=== PATIENT | female | born 1970 | race Caucasian/White ===

== ENCOUNTER 2016-07-07 07:19 | Emergency (ER) | payer OTHER ==
[2016-07-07] MEDS ORDERED: IBUPROFEN 800 MG TABLET PO ONE (08:03)
--- NOTE | 2016-07-07 08:10 | ER Document Report ---
HPI - HPI Patient complains to provider of: alleged attack Onset: This morning - [id number] Quality of pain: Achy Severity: Moderate Pain Level: 3 Context: Patient presents to the emergency department with complaints of alleged attack that occurred at 5:30 to 6:00 this morning. 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 She went to put trash in the dumpster and when she slid the door open something jumped out at her. ARTHUR was called and they think it was a cat because they found cat hairs. Patient does not think it was a cat. She has a long vertical scratch on her forehead and abrasion near her hairline, no active bleeding. Denies change of LOC. She reports as soon as it happened she ran into the store. Reports tetanus up to date. C/O ELAINE. 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 [employer] Family History: CAD, DM, Malignancy, Other - stroke Patient has suicidal ideation: No Patient has homicidal ideation: No - Past Medical History Cardiac Medical History: Reports: Hx Hypercholesterolemia, Hx Hypertension, Hx Heart Murmur Pulmonary Medical History: Denies: Hx Respiratory Failure, Hx Sleep Apnea, Hx Tuberculosis Neurological Medical History: Reports: Hx Cerebrovascular Accident - 04/29 at [facility] for "blood clot in brain", Hx Migraine - OCCASIONAL Endocrine Medical History: Reports: Hx Hypothyroidism - ON SYNTHROID, PROPYLTHIOURACIL Renal/ Medical History: Denies: Hx Peritoneal Dialysis GI Medical History: Reports: Hx Ulcer Psychiatric Medical History: Reports: Hx Anxiety, Hx Depression Traumatic Medical History: Reports: Hx Fractures - left elbow Past Surgical History: Reports: Hx Appendectomy, Hx Cardiac Catheterization, Hx Section, Hx Tonsillectomy, Hx Tubal Ligation - Immunizations Immunizations up to date: Yes - 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 IN LAST 30 DAYS: No - HEENT HEENT: RAVINDRARPAYAL. negative: Pharyngeal Erythema - NECK Neck: Normal Inspection, Supple. negative: Lymphadenopathy-Left, Lymphadenopathy-Right - RESPIRATORY Respiratory: Breath Sounds Normal, No Respiratory Distress O2 Sat by Pulse Oximetry: 100 - CARDIOVASCULAR Cardiovascular: Regular Rate - MUSCULOSKELETAL/EXTREMETIES Musculoskeletal/Extremeties: MAEW, FROM, Non-Tender - NEURO Level of Consciousness: Awake, Alert, Appropriate Motor/Sensory: No Motor Deficit - DERM Integumentary: Warm, Dry, Laceration - scratches, #1- 1.2 cm horizontal linear, no active bleeding on forehead, center near hairline #2- 4 cm vertically, irregular down left side of cheeck Adult Front & Back Diagram: 1 - 1.5 cm 2 - 4cm irregular scratch 3 - small puncture wound <1mm 4 - small puncture wound, <1mm Course - Re-evaluation Re-evalutation: 07/07/16 08:33 Problems cleaned really well by blackjack supervisor keke and nahed with NS and hebicleyamile. Patient was instructed to follow up with animal control. An optimal control form completed here by SANTY Jacobs. . Little chance that this was a rapid raccoon due to unprovoked attack. Most likely a cat. Patient was instructed on the importance of cleaning the scratches and medication as prescribed - Vital Signs Vital signs: Temp Pulse Resp BP Pulse Ox 97.6 F 76 16 156/90 H 100 07/07/16 07:28 07/07/16 07:28 07/07/16 07:28 07/07/16 07:28 07/07/16 07:28 Discharge - Discharge Clinical Impression: alleged attack, Animal scratch Facial abrasion Qualifiers: Encounter type: initial encounter Qualified Code(s): S00.81XA - Abrasion of other part of head, initial encounter Condition: Stable Disposition: HOME, SELF-CARE Instructions: Abrasions of the Face ([facility]), Use of Gnfv-Avp-Mdlkmpp Ibuprofen ( [facility]), Augmentin ([facility]) Additional Instructions: *You have been treated for facial abrasions post possible cat scratch *Take ibuprofen as indicated for pain *Take medication as prescribed *Monitor the sites for signs of infection such as increasing pain, redness, swelling, warmth *Keep the areas clean *Follow up with your primary care provider within 5 days for recheck *Return to ED for signs of infection, worsening condition, changes, needs Prescriptions: Amoxicillin/Potassium Clav [Augmentin 875-125 Tablet] 1 each PO BID #20 tablet Forms: Elevated Blood Pressure Referrals: ABEL WARNER [Primary Care Provider] - Follow up in 3-5 days
[2016-07-07 08:48] VITALS: BP 137/89
== END 2016-07-07 08:48 | disposition home or self-care (01) ==
LOC: ER 07:19
DX: S00.81XA Abrasion of other part of head, initial encounter (principal); S01.83XA Puncture wound without foreign body of other part of head, initial encounter; F17.210 Nicotine dependence, cigarettes, uncomplicated; W55.03XA Scratched by cat, initial encounter; Y92.524 Gas station as the place of occurrence of the external cause; Y99.0 Civilian activity done for income or pay; I10 Essential (primary) hypertension; E03.9 Hypothyroidism, unspecified; E78.00 Pure hypercholesterolemia, unspecified; Z86.73 Personal history of transient ischemic attack (TIA), and cerebral infarction without residual deficits; Z98.51 Tubal ligation status
CPT/HCPCS: 99283

== ENCOUNTER 2016-08-30 18:45 | Emergency (ER) | payer OTHER ==
[2016-08-30] MEDS ORDERED: ASPIRIN 81 MG TABLET, CHEWABLE PO ONE (19:13)
--- NOTE | 2016-08-30 19:13 | ER Document Report ---
ED Medical Screen (RME) - General Stated Complaint: CHEST PAIN Time seen by provider: 19:10 Mode of Arrival: Wheelchair Information source: Patient Notes: 46-year-old female presents to ED for chest pain with shortness of breath and right hand numbness this started about 2 hours ago. She also has blurred vision. They she has not had cardiac problems before. Last menstrual period was in June she is irregular. I have greeted and performed a rapid initial assessment of this patient. A comprehensive ED assessment and evaluation of the patient, analysis of test results and completion of medical decision making process will be conducted by an additional ED providers. TRAVEL OUTSIDE OF THE [place] IN LAST 30 DAYS: No - Related Data Allergies/Adverse Reactions: erythromycin base [Erythromycin Base] Allergy (Mild, Verified 07/07/16 07:28) Pruritis latex [Latex] Allergy (Mild, Verified 07/07/16 07:28) Blisters Past Medical History - Past Medical History Cardiac Medical History: Reports: Hx Hypercholesterolemia, Hx Hypertension, Hx Heart Murmur Pulmonary Medical History: Denies: Hx Respiratory Failure, Hx Sleep Apnea, Hx Tuberculosis Neurological Medical History: Reports: Hx Cerebrovascular Accident - 04/29 at [place] for "blood clot in brain", Hx Migraine - OCCASIONAL Endocrine Medical History: Reports: Hx Hypothyroidism - ON SYNTHROID, PROPYLTHIOURACIL Renal/ Medical History: Denies: Hx Peritoneal Dialysis GI Medical History: Reports: Hx Ulcer Psychiatric Medical History: Reports: Hx Anxiety, Hx Depression Traumatic Medical History: Reports: Hx Fractures - left elbow Past Surgical History: Reports: Hx Appendectomy, Hx Cardiac Catheterization, Hx Section, Hx Tonsillectomy, Hx Tubal Ligation - Immunizations Immunizations up to date: Yes - 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
[2016-08-30 19:58] LABS: ABSOLUTE BASOPHILS # (AUTO) 0.1 10^3/uL (0.0-0.2); ABSOLUTE EOSINOPHILS # (AUTO) 0.3 10^3/uL (0.0-0.6); ABSOLUTE LYMPHOCYTES (AUTO) 2.6 10^3/uL (0.5-4.7); ABSOLUTE MONOCYTES (AUTO) 1.1 10^3/uL (0.1-1.4); ABSOLUTE NEUT (AUTO) 5.9 10^3/uL (1.7-8.2); BASOPHILS % (AUTO) 0.9 % (0-2); EOSINOPHILS % (AUTO) 3.5 % (0-6); HEMATOCRIT 36.2 % (36.0-47.0); HEMOGLOBIN 11.6 g/dL (12.0-15.5); HGB HCT DIFFERENCE -1.4; LYMPHOCYTES % (AUTO) 25.9 % (13-45); MEAN CORPUSCULAR HEMOGLOBIN 23.1 pg (27.0-33.4); MEAN CORPUSCULAR VOLUME 72 fl (80-97); MONOCYTES % (AUTO) 10.6 % (3-13); RED BLOOD COUNT 5.02 10^6/uL (3.72-5.28); RED CELL DISTRIBUTION WIDTH 15.5 % (11.5-14.0); SEGMENTED NEUTROPHILS % (AUTO) 59.1 % (42-78)
[2016-08-30 20:09] LABS: APPEARANCE,URINE CLEAR; BILIRUBIN,URINE NEGATIVE (NEGATIVE); GLUCOSE, URINE NEGATIVE (NEGATIVE); KETONES,URINE NEGATIVE (NEGATIVE); LEUKOCYTE ESTERASE,URINE NEGATIVE (NEGATIVE); NITRITE,URINE NEGATIVE (NEGATIVE); PROTEIN,URINE NEGATIVE (NEGATIVE); URINE SPECIFIC GRAVITY 1.003; UROBILINOGEN,URINE NEGATIVE mg/dL (<2.0)
[2016-08-30 20:13] LABS: ALANINE AMINOTRANSFERASE 21 U/L (9-52); ALKALINE PHOSPHATASE 82 U/L (38-126); ANION GAP 13 (5-19); ASPARTATE AMINO TRANSFERASE 18 U/L (14-36); BILIRUBIN,TOTAL 0.4 mg/dL (0.2-1.3); BLOOD UREA NITROGEN 11 mg/dL (7-20); CALCIUM 10.4 mg/dL (8.4-10.2); CARBON DIOXIDE 22 mmol/L (22-30); CHLORIDE 106 mmol/L (98-107); CREATINE KINASE 59 U/L (30-135); CREATININE RESULT 0.89 mg/dL (0.52-1.25); GLUCOSE 101 mg/dL (75-110); MAGNESIUM 2.1 mg/dL (1.6-2.3); POTASSIUM 4.4 mmol/L (3.6-5.0); SODIUM 140.9 mmol/L (137-145); TOTAL PROTEIN 8.6 g/dL (6.3-8.2)
[2016-08-30 20:26] LABS: CREATINE KINASE MB < 0.22 ng/mL (<4.55); TROPONIN I < 0.012 ng/mL
[2016-08-30] MEDS ORDERED: NORMAL SALINE 1000 ML 1,000 ML IV PRN (22:15)
[2016-08-30] MEDS ORDERED: MECLIZINE HCL 25 MG TABLET PO ONE (22:15)
[2016-08-30] MEDS ORDERED: ONDANSETRON HCL INJ/PF 4 MG/2 ML SDV IV ONE (22:15)
[2016-08-30 23:41] LABS: CREATINE KINASE MB < 0.22 ng/mL (<4.55); TROPONIN I < 0.012 ng/mL
[2016-08-30 23:42] LABS: FREE T3 4.47 pg/mL (2.77-5.27)
[2016-08-30 23:56] LABS: THYROID STIMULATING HORMONE 19.8 uIU/mL (0.47-4.68)
--- NOTE | 2016-08-31 00:42 | ER Document Report ---
ED General - General Chief Complaint: Chest Pain Stated Complaint: CHEST PAIN Time seen by provider: 00:41 Mode of Arrival: Wheelchair Information source: Patient TRAVEL OUTSIDE OF THE U.S. IN LAST 30 DAYS: No - HPI Patient complains to provider of: right-sided chest pain, dizziness, blurred vision Onset: This afternoon Onset/Duration: Gradual Quality of pain: Achy Severity: Mild Pain Level: 2 Associated symptoms: Body/muscle aches, Chest pain, Shortness of breath Exacerbated by: Denies Relieved by: Denies Similar symptoms previously: No Recently seen / treated by doctor: No Notes: Patient is a 46-year-old female presents to the emergency room complaining of right-sided chest pain with blurred vision, dizziness and lightheadedness that' s been going on for the past 5-6 hours, she reports symptoms started while at rest, she denies any neck pain, no nausea or vomiting, she does report shortness of breath as well, no history of similar symptoms previously, although she does report a history of anxiety as well as melanoma, patient is a smoker - Related Data Allergies/Adverse Reactions: erythromycin base [Erythromycin Base] Allergy (Mild, Verified 08/30/16 19:13) Pruritis latex [Latex] Allergy (Mild, Verified 08/30/16 19:13) Blisters Past Medical History - General Information source: Patient - Social History Smoking Status: Current Every Day Smoker Chew tobacco use (# tins/day): No Frequency of alcohol use: None Drug Abuse: None Family History: CAD, DM, Malignancy, Other - stroke Patient has suicidal ideation: No Patient has homicidal ideation: No - Past Medical History Cardiac Medical History: Reports: Hx Hypercholesterolemia, Hx Hypertension, Hx Heart Murmur Pulmonary Medical History: Denies: Hx Respiratory Failure, Hx Sleep Apnea, Hx Tuberculosis Neurological Medical History: Reports: Hx Cerebrovascular Accident - 04/29 at [place] for "blood clot in brain", Hx Migraine - OCCASIONAL Endocrine Medical History: Reports: Hx Hypothyroidism - ON SYNTHROID, PROPYLTHIOURACIL Renal/ Medical History: Denies: Hx Peritoneal Dialysis GI Medical History: Reports: Hx Ulcer Psychiatric Medical History: Reports: Hx Anxiety, Hx Depression Traumatic Medical History: Reports: Hx Fractures - left elbow Past Surgical History: Reports: Hx Appendectomy, Hx Cardiac Catheterization, Hx Section, Hx Tonsillectomy, Hx Tubal Ligation - Immunizations Immunizations up to date: Yes - 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, Pertussis, Tetanus Vaccination: Yes Review of Systems - Review of Systems Constitutional: No symptoms reported EENT: Blurred vision Cardiovascular: See HPI Respiratory: See HPI Gastrointestinal: No symptoms reported Genitourinary: No symptoms reported Female Genitourinary: No symptoms reported Musculoskeletal: No symptoms reported Skin: No symptoms reported Hematologic/Lymphatic: No symptoms reported Neurological/Psychological: No symptoms reported -: Yes All other systems reviewed and negative Physical Exam - Vital signs Vitals: Temp Pulse Resp BP Pulse Ox 98.1 F 94 16 131/84 H 100 08/30/16 19:01 08/30/16 19:01 08/30/16 19:01 08/30/16 19:01 08/30/16 19:01 Interpretation: Normal - General General appearance: Appears well, Alert - HEENT Head: Normocephalic, Atraumatic Eyes: Normal Pupils: PERRL - Respiratory Respiratory status: No respiratory distress Chest status: Nontender Breath sounds: Normal Chest palpation: Normal - Cardiovascular Rhythm: Regular Heart sounds: Normal auscultation Murmur: No - Abdominal Inspection: Normal Distension: No distension Bowel sounds: Normal Tenderness: Nontender Organomegaly: No organomegaly - Back Back: Normal, Nontender - Extremities General upper extremity: Normal inspection, Nontender, Normal color, Normal ROM , Normal temperature General lower extremity: Normal inspection, Nontender, Normal color, Normal ROM , Normal temperature, Normal weight bearing. No: Bhavna's sign - Neurological Neuro grossly intact: Yes Cognition: Normal Orientation: AAOx4 [place] Coma Scale Eye Opening: Spontaneous [place] Coma Scale Verbal: Oriented [place] Coma Scale Motor: Obeys Commands [place] Coma Scale Total: 15 Speech: Normal Motor strength normal: LUE, RUE, LLE, RLE Sensory: Normal - Psychological Associated symptoms: Normal affect, Normal mood - Skin Skin Temperature: Warm Skin Moisture: Dry Skin Color: Normal Course - Re-evaluation Re-evalutation: 08/31/16 02:18 Patient reports feeling much better after IV fluids and meclizine, she reports her symptoms are resolved, cardiac enzymes 2 are negative, symptoms are atypical for chest pain, she will is noted to have an elevated TSH which is consistent with hypothyroidism, she does report weight gain, feeling cold and sluggish, and hair loss, mother at bedside reports she has a history of hypothyroidism as well, patient was informed of lab and imaging findings, she was started on a very low dose of levothyroxine, and advised to follow-up with a primary care provider as well as an mechanical drawing teacher within the next week, or return if symptoms worsen, patient acknowledges understanding and agreement with this plan - Vital Signs Vital signs: Temp Pulse Resp BP Pulse Ox 98.1 F 94 18 133/78 H 99 08/30/16 19:01 08/30/16 19:01 08/31/16 01:42 08/31/16 01:42 08/31/16 01:42 - Laboratory Result Diagrams: 08/30/16 19:36 08/30/16 19:36 Laboratory results interpreted by me: 08/30/16 08/30/16 08/30/16 19:36 19:36 19:36 Hgb 11.6 L MCV 72 L MCH 23.1 L RDW 15.5 H Calcium 10.4 H Total Protein 8.6 H TSH Urine Blood SMALL H 08/30/16 22:40 Hgb MCV MCH RDW Calcium Total Protein TSH 19.80 H Urine Blood - Diagnostic Test Radiology reviewed: Image reviewed, Reports reviewed - EKG Interpretation by Me EKG shows normal: Sinus rhythm Rate: Normal Rhythm: NSR Discharge - Discharge Clinical Impression: Hypothyroidism Qualifiers: Hypothyroidism type: unspecified Qualified Code(s): E03.9 - Hypothyroidism, unspecified Condition: Stable Disposition: HOME, SELF-CARE Instructions: Hypothyroidism ([facility]) Additional Instructions: Follow-up with a primary care provider and an mechanical drawing teacher within the next week. Return to the emergency room immediately if symptoms worsen or any additional concerns. Prescriptions: Levothyroxine Sodium [Synthroid 0.025 mg Tablet] 0.025 mg PO DAILY #30 tablet Forms: Return to Work
[2016-08-31 02:04] VITALS: BP 133/78
--- NOTE | 2016-08-31 05:37 | EKG REPORT ---
SEVERITY:- NORMAL ECG - SINUS RHYTHM : Confirmed by: Zainab Carson MD 31-Aug-2016 05:36:40
== END 2016-08-31 01:45 | disposition home or self-care (01) ==
LOC: ER 18:45
DX: E03.9 Hypothyroidism, unspecified (principal); R07.9 Chest pain, unspecified; R42 Dizziness and giddiness; H53.8 Other visual disturbances; M79.1 Myalgia; F17.200 Nicotine dependence, unspecified, uncomplicated; E78.00 Pure hypercholesterolemia, unspecified; I10 Essential (primary) hypertension; Z98.51 Tubal ligation status; Z86.73 Personal history of transient ischemic attack (TIA), and cerebral infarction without residual deficits; Z91.040 Latex allergy status; Z88.3 Allergy status to other anti-infective agents
CPT/HCPCS: 93005; 99285; 96361; 96374; 36415; 84439; 82553; 82550; 83735; 84443; 84703; 85025; 80053; 81001; 84484; 84481; 71020; 70450; 93010; J2405; J7030

== ENCOUNTER 2017-10-31 22:18 | Emergency (ER) | payer MEDICAID ==
[2017-10-31] MEDS ORDERED: DIPHENHYDRAMINE HCL 50 MG/ML VIAL IV ONE (22:33)
[2017-10-31] MEDS ORDERED: METOCLOPRAMIDE HCL INJ/PF 10 MG/2 ML SDV IV ONE (22:34)
[2017-10-31] MEDS ORDERED: NORMAL SALINE 1000 ML 1,000 ML IV ONE (22:34)
--- NOTE | 2017-10-31 22:35 | ER Document Report ---
ED NIH Stroke Scale - NIH Stroke Scale When completed:: Before Alteplase *: 1. NIH scale should be completed with appropriate accompanying assessment tools. *: 2. The NIH should reflect what the patient is capable of doing and should not be coached by the clinician. 1a. Level of Consciousness: 0=Alert;keenly responsive -: 1=Drowsy -: 2=Obtunded -: 3=Coma/unresponsive or reflex to noxious stimuli. 1a. Responses: 0 1b. Orientation Questions: a. What month is it? -: b. How old are you? -: 0=Answers both questions correctly. -: 1=Answers one question correctly or patient is intubated or has orotracheal trauma. -: 2=Answers neither question correctly. 1b. Responses: 0 1c. Response to commands: a. Open and close eyes? -: b. Supply Room Clerk and release hand? -: Credit is given despite weakness. Demonstration of task is permitted. Substitute command if hands cannot be used. -: 0=Performs both tasks correctly -: 1=Performs one task correctly -: 2=Performs neither task correctly 1c. Responses: 0 2. Gaze: Establish eye contact and instruct patient to "Follow my finger" -: 0=Normal -: 1=Partial gaze palsy. Gaze is abnormal in one or both eyes, but where forced deviation or total gaze paresis is not present. -: 2=Forced deviation or total gaze paresis. 2. Responses: 0 3. Visual Bell: Sees fingers in all four quadrants. -: 0=No visual loss. -: 1=Partial hemianopsia. -: 2=Complete hemianopsia. -: 3=Bilateral hemianopsia (including Cortical blindness) 3. Responses: 0 4. Facial Movement: Instruct patient to: -: a. Show me your teeth -: b. Raise your eyebrows -: c. Close your eyes -: d. Smile -: 0=Normal symmetrical movement -: 1=Minor paralysis (flattened nasolabial fold, asymmetry on smiling). -: 2=Partial paralysis (total or near total paralysis of lower face). -: 3=Complete paralysis of upper and lower face 4. Responses: 1 5. Motor functions (left arm): Alternate sides and extend each arm with palms down (90 degrees if sitting or 45 degrees for supine). -: 0=No drift;limb holds for full 10 seconds. -: 1=Drift; limb holds but drifts down before full 10 seconds, but does not hit bed. -: 2=Some effort against gravity; limb cannot get to or maintain position. -: 3=No effort against gravity; limb falls. -: 4=No movement. -: UN=Amputation, joint fusion, explain in comments. 5. Responses (left arm): 0 5. Motor Functions (right arm): Alternate sides and extend each arm with palms down (90 degrees if sitting or 45 degrees for supine). -: 0=No drift;limb holds for full 10 seconds. -: 1=Drift; limb holds but drifts down before full 10 seconds, but does not hit bed. -: 2=Some effort against gravity; limb cannot get to or maintain position. -: 3=No effort against gravity; limb falls. -: 4=No movement. -: UN=Amputation, joint fusion, explain in comments. 5. Responses (right arm): 0 6. Motor Functions (left leg): With patient lying supine, alternate sides and extend each leg (30 degrees always while supine). -: 0=No drift, leg holds position for full 5 seconds -: 1=Drift; leg falls before full 5 seconds but does not hit bed. -: 2=Some effort against gravity, leg falls to bed but some effort against gravity. -: 3=No effort against gravity, leg falls to bed immediately. -: 4=No movement. -: UN=Amputation, joint fusion; explain in comments. 6. Responses (left leg): 0 6. Motor Functions (right leg): With patient lying supine, alternate sides and extend each leg (30 degrees always while supine). -: 0=No drift, leg holds position for full 5 seconds -: 1=Drift; leg falls before full 5 seconds but does not hit bed. -: 2=Some effort against gravity, leg falls to bed but some effort against gravity. -: 3=No effort against gravity, leg falls to bed immediately. -: 4=No movement. -: UN=Amputation, joint fusion; explain in comments. 6. Responses (right leg): 0 7. Limb Ataxia: With eyes open instruct patient to: -: a. "Touch your finger to your nose". -: b. "Touch your heel to your egrard" -: 0=Absent -: 1=Present in one limb. -: 2=Present in two limbs. -: UN=Amputation or joint fusion; explain in comments. 7. Responses: 0 8. Sensory: Test sensation using pinprick or noxious stimuli. Test as many body parts as possible. -: 0=Normal;no sensory loss -: 1=Mile to moderate sensory loss (patient feels pin prick but is less sharp on affected side). -: 2=Severe or total sensory loss. 8. Responses: 0 9. Best Language: Instruct patient to: -: a. "Describe what you see in this picture." -: b. "Name the items in this picture." -: c. "Read these sentences." -: 0=No aphasia, normal -: 1=Mild to moderate aphasia. -: 2=Severe aphasia -: 3=Mute, global aphasia, no usable speech or auditory comprehension. 9. Responses: 0 10. Articulation, Dysarthia: Instruct patient to: -: "Read these words" or "Repeat these words" -: 0=Normal -: 1=Mild to moderate; patient may slur some words but can be understood without difficulty. -: 2=Severe; patients speech so slurred as to be unintelligible in the absence of dysphasia. -: UN=Intubated or other physical barrier, explain in comments. 10. Responses: 1 11. Extinction or inattention: 0=No abnormality -: 1= Visual, tactile, auditory, spatial, or personal inattention or extinction to bilateral simulation in one or the sensory modalities. -: 2=Profound musa-inattention or musa-inattention to more than one modality; does not recognize own hand. 11. Responses: 0 Total Score: 2
--- NOTE | 2017-10-31 22:36 | ER Document Report ---
ED General - General Chief Complaint: S/S of Possible Stroke Stated Complaint: STROKE SYMPTOMS Time Seen by Provider: 10/31/17 22:23 Notes: Patient is a 47-year-old female who is brought in from home after sudden onset of headache and facial droop that started at 9 PM. Patient has had similar symptoms in the past. She was seen here in 2013 for the same thing and was treated as a complex migraine and her symptoms resolved. She also mentions that she was seen at [facility] for similar thing was admitted to ICU for potential stroke versus TIA. She denies any vomiting. She says she initially had blurred vision but that has been since resolved. said she initially had some difficulty ambulating but that is also improved. She says currently she has mainly the facial droop and weakness to the right side of her face. She denies any recent fevers or infections. She still has a headache. She has no other complaints at this time. She does not take any blood thinning medications. TRAVEL OUTSIDE OF THE [place] IN LAST 30 DAYS: No - Related Data Allergies/Adverse Reactions: erythromycin base [Erythromycin Base] Allergy (Mild, Verified 08/30/16 19:13) Pruritis latex [Latex] Allergy (Mild, Verified 08/30/16 19:13) Blisters Past Medical History - Social History Smoking Status: Unknown if Ever Smoked Frequency of alcohol use: None Drug Abuse: None Family History: CAD, DM, Malignancy, Other - stroke - Past Medical History Cardiac Medical History: Reports: Hx Hypercholesterolemia, Hx Hypertension, Hx Heart Murmur Pulmonary Medical History: Denies: Hx Respiratory Failure, Hx Sleep Apnea, Hx Tuberculosis Neurological Medical History: Reports: Hx Cerebrovascular Accident - 04/29 [place] for "blood clot in brain", Hx Migraine - OCCASIONAL Endocrine Medical History: Reports: Hx Hypothyroidism - ON SYNTHROID, PROPYLTHIOURACIL Renal/ Medical History: Denies: Hx Peritoneal Dialysis GI Medical History: Reports: Hx Ulcer. 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 Denies recent illness. EENT: Denies eye, ear, throat, or mouth pain or symptoms. Denies nasal or sinus congestion. CARDIOVASCULAR: Denies chest pain. RESPIRATORY: Denies cough, cold, or chest congestion. Denies shortness of breath, difficulty breathing, or wheezing. GASTROINTESTINAL: Denies abdominal pain. Denies nausea, vomiting, or diarrhea. Denies constipation. Last BM: GENITOURINARY: Denies difficulty urinating, painful urination, burning, frequency, or blood in urine. MUSCULOSKELETAL: Denies neck or back pain or joint pain or swelling. SKIN: Denies rash or skin lesions. HEMATOLOGIC : Denies easy bruising or bleeding. NEUROLOGICAL: Denies altered mental status or loss of consciousness. As a headache. Has some chronic numbness in mild amount weakness in right arm. No new changes regard to that. She had some difficulty walking.. Denies sensory or motor loss. ALL OTHER SYSTEMS REVIEWED AND NEGATIVE. Physical Exam - Vital signs Vitals: Pulse Resp BP Pulse Ox 78 18 150/98 H 97 10/31/17 22:18 10/31/17 22:18 10/31/17 22:18 10/31/17 22:18 - Notes Notes: General Appearance: Well nourished, alert, cooperative, no acute distress, mild obvious discomfort. Vitals: reviewed, See vital signs table. Head: no swelling or tenderness to the head Eyes: PERRL, EOMI, Conjuctiva clear Mouth: No decreasd moisture Throat: No tonsillar inflammation, No airway obstruction, No lymphadenopathy Neck: Supple, no neck tenderness, No thyromegaly Lungs: No wheezing, No rales, No rhonci, No accessory muscle use, good air exchange bilaterally. Heart: Normal rate, Regular rythm, No murmur, no rub Abdomen: Normal BS, soft, No rigidity, No abdominal tenderness, No guarding, no rebound, no abdominal masses, no organomegaly Extremities: strength 5/5 in all extremities, good pulses in all extremities, no swelling or tenderness in the extremities, no edema. Skin: warm, dry, appropriate color, no rash Neuro: speech clear, oriented x 3, normal affect, responds appropriately to questions. Patient is holding her jaw pulled to the right side. It is somewhat atypical for usual facial droop and that when asked to smile she would not really attempt very hard. She was unable to lift the left side of her face. Her face is at rest the left side of her face is normal without any drooping. She is able to open her mouth. Vascular wrinkle her forehead she again is somewhat hesitant with this. She will start to drink, and then stop and then eventually she would eventually recover after asked her several times to continue to try to do it. She has good ocular extraocular motion. Pupils are equal and reactive. Patient is able to hold both arms up against gravity and hold him there for over 10 seconds without any difficulty. Patient is able lift her legs off the bed and hold him up off the bed without any wavering. She is able [place] in the year for over 10 seconds without difficulty. She has good distal sensation. When patient raises her arms and hands off the bed she has no shaking or discoordination of movement. Course - Re-evaluation Re-evalutation: 10/31/17 22:36 Patient has very similar presentation to what she had in 2014. I did review the note from Dr. Fanny Granger from November 15, 2013. At that time she presented with presentation of almost pulling her jaw to the right and complaining of right-sided facial droop. She presents with the exact same presentation today. She said symptoms started with a headache around 9 PM. She says she has the weakness in the right side of her face. Triage note from the ambulance mentions that she has unequal chemist steroids strength. Patient says she always has some slight weakness in her right hand. She has no pronator drift on exam and her chemist steroids strength seems only slightly diminished on the right side. Patient says this is chronic for her. Patient said she was treated for stroke in [facility] and admitted to ICU. She says that she does not know what medications where given to her. I talked to her at length and informed her that it is difficult for me to tell whether not this is truly a stroke or not based on the fact that in 2014 she had same symptoms and was thought to be related to a complex migraine and she was treated with Benadryl and Compazine and her symptoms completely resolved. I talked her length about TPA because she is within the window. I told her that I again cannot tell her for sure that this is a stroke however I cannot completely rule out either. I showed her the AA[facility] diagram to help better explain the risks and benefits of TPA. This diagram of course is based off data from the [facility] protocol. Patient was hesitant at first and then ultimately decided that she does not want take the risk of intracranial bleeding and therefore wants to hold off on TPA. We will treat her as a complex migraine. Her NIH scale currently is only 2. Order medications to treat her. CT scan thus far is negative. I will closely monitor her. 10/31/17 22:36 10/31/17 22:48 Patient's is now in the room. I went over the same scenarios with TPA versus no TPA with the and the patient together in the room. They both agree against TPA at this time. They want to go forward with treating for headache being that she has had resolution of her symptoms without TPA in the past and with treatment of headache. 10/31/17 23:25 Patient started feel better. Still some headache but is improving. Her face is now symmetric without droop. I will give patient a small dose of Morphine to try to help further improve her headache. I will then reassess again. 10/31/17 23:26 11/01/17 00:52 On reevaluation patient's neurologic symptoms are completely resolved except for she still just has a very mild headache. She says is almost completely gone and she feels well. She has been up and walk around without any difficulty. No gait disturbance. Facial droop is completely gone. She has good strength in all 4 extremities. I suspect this most likely is complex migraines being that she has had similar symptoms in the past which included onset of headache with facial droop. I do not suspect stroke at this time. I informed the patient and her that she should still level a very low threshold to return to ER if she ever has headache with associated facial weakness or extremity weakness. I told her that she can always take the Reglan Benadryl but if she ever has any focal weakness she must return to ER for evaluation as stroke is always still possible in the future. Also refer her to neurologist for further evaluation. Patient and agree with plan and she will be discharged home. She says she cannot take any medications that have aspirin in them. Dictation of this chart was performed using voice recognition software; therefore, there may be some unintended grammatical errors. - Vital Signs Vital signs: Temp Pulse Resp BP Pulse Ox 72 14 127/77 H 99 11/01/17 00:00 11/01/17 00:20 11/01/17 00:20 11/01/17 00:20 - Laboratory Result Diagrams: 10/31/17 22:30 10/31/17 22:30 Laboratory results interpreted by me: 10/31/17 10/31/17 22:30 22:30 Eosinophils % 6.3 H Chloride 108 H Carbon Dioxide 21 L AST 13 L - EKG Interpretation by Me Additional EKG results interpreted by me: 10/31/17 22:53 EKG is reviewed and interpreted by me. EKG shows normal sinus rhythm with rate of [address] segment elevation or depression. No ischemic T-wave inversions. [place] interval, QRS duration, QTc intervals are within normal range. Discharge - Discharge Clinical Impression: Facial droop Headache Qualifiers: Headache type: unspecified Headache chronicity pattern: acute headache Intractability: not intractable Qualified Code(s): R51 - Headache Condition: Good Disposition: HOME, SELF-CARE Additional Instructions: Please take the Reglan with 50mg of Benadryl if you have a headache. Please still come to the ER immediately if you have any facial droop or extremity weakness in conjunction with the headache. Please return to the ER immediately if you have recurring facial droop, severe headache, vomiting, or any focal weakness. Please call the neurologist, Dr. Guzman, to make a close follow up appointment and for reassessment. Prescriptions: Metoclopramide HCl [Reglan 10 mg Tablet] 1 tab PO ASDIR PRN #25 tablet PRN Reason: Forms: Return to Work Referrals: ABEL WARNER FNP [Primary Care Provider] - Follow up as needed AUDREY GUZMAN MD [EMERITUS] - 11/04/17
[2017-10-31 22:42] LABS: ABSOLUTE BASOPHILS # (AUTO) 0.1 10^3/uL (0.0-0.2); ABSOLUTE EOSINOPHILS # (AUTO) 0.5 10^3/uL (0.0-0.6); ABSOLUTE LYMPHOCYTES (AUTO) 2.9 10^3/uL (0.5-4.7); ABSOLUTE MONOCYTES (AUTO) 0.7 10^3/uL (0.1-1.4); ABSOLUTE NEUT (AUTO) 3.2 10^3/uL (1.7-8.2); EOSINOPHILS % (AUTO) 6.3 % (0-6); HEMATOCRIT 39.1 % (36.0-47.0); HEMOGLOBIN 13.6 g/dL (12.0-15.5); MEAN CORPUSCULAR HEMOGLOBIN 29.6 pg (27.0-33.4); MEAN CORPUSCULAR HGB CONC 34.9 g/dL (32.0-36.0); MEAN CORPUSCULAR VOLUME 85 fl (80-97); MONOCYTES % (AUTO) 9.9 % (3-13); PLATELET COUNT 307 10^3/uL (150-450); RED BLOOD COUNT 4.61 10^6/uL (3.72-5.28); RED CELL DISTRIBUTION WIDTH 13.2 % (11.5-14.0); SEGMENTED NEUTROPHILS % (AUTO) 43.8 % (42-78); TOTAL CELLS COUNTED % (AUTO) 100 %; WHITE BLOOD COUNT 7.4 10^3/uL (4.0-10.5)
--- NOTE | 2017-10-31 22:42 | RADIOLOGY REPORT (SQ) ---
EXAM DESCRIPTION: CHEST SINGLE VIEW COMPLETED DATE/TIME: 10/31/2017 10:31 pm REASON FOR STUDY: stroke alert COMPARISON: 08/30/2016 NUMBER OF VIEWS: One view. TECHNIQUE: Single frontal radiographic view of the chest acquired. LIMITATIONS: None. FINDINGS: LUNGS AND PLEURA: Low lung volumes. No opacities, masses or pneumothorax. No pleural eff usion. MEDIASTINUM AND HILAR STRUCTURES: No masses. No contour abnormality. HEART AND VASCULAR STRUCTURES: Normal size. No evidence for failure. BONES: No acute findings. HARDWARE: None in the chest. OTHER: No other significant finding. IMPRESSION: LOW LUNG VOLUMES. NO SIGNIFICANT RADIOGRAPHIC FINDING IN THE CHEST. TECHNICAL DOCUMENTATION: JOB ID: [id number] [employer]- All Rights Reserved Reading location - IP/workstation name: [email or web address]
[2017-10-31 22:44] LABS: INTERNATIONAL RATION (INR) 0.96; PROTHROMBIN TIME 13.3 SEC (11.4-15.4)
--- NOTE | 2017-10-31 22:44 | RADIOLOGY REPORT (SQ) ---
EXAM DESCRIPTION: CT HEAD WITHOUT COMPLETED DATE/TIME: 10/31/2017 10:33 pm REASON FOR STUDY: stroke alert COMPARISON: 08/30/2016 TECHNIQUE: Axial images acquired through the brain without intravenous contrast. Images reviewed wi th bone, brain and subdural windows. Images stored on PACS. All CT scanners at this facility use dose modulation, iterative reconstruction, and/or weight based d osing when appropriate to reduce radiation dose to as low as reasonably achievable (ALARA). [facility]: Dose Right [facility]: CareDose [facility]: Dose Right [facility]: Teradose 4D [facility]: Giftxoxo RADIATION DOSE: mGy. LIMITATIONS: None. FINDINGS: VENTRICLES: Normal size and contour. CEREBRUM: No masses. No hemorrhage. No midline shift. No evidence for acute infarction. Normal gra y/white matter differentiation. No areas of low density in the white matter. CEREBELLUM: No masses. No hemorrhage. No alteration of density. No evidence for acute infarction. EXTRAAXIAL SPACES: No fluid collections. No masses. ORBITS AND GLOBE: No intra- or extraconal masses. Normal contour of globe without masses. CALVARIUM: No fracture. PARANASAL SINUSES: No fluid or mucosal thickening. SOFT TISSUES: No mass or hematoma. OTHER: No other significant finding. IMPRESSION: NO CT EVIDENCE OF ACUTE ISCHEMIA, HEMORRHAGE, OR MASS LESION. NO SIGNIFICANT CHANGE FRO M PRIOR STUDY. EVIDENCE OF ACUTE STROKE: NO. COMMENT: Pertinent positive or negative findings of the imaging study reported as a CRITICAL EXAM luisito SANIAN ROJAS SAUCEDO at22:38 on 10/31/2017. Category of Critical Exam: CODE STROKE Quality ID # [id number]: Final reports with documentation of one or more dose reduction techniques (e.g., Au tomated exposure control, adjustment of the mA and/or kV according to patient size, use of iterative reconstruction technique) TECHNICAL DOCUMENTATION: JOB ID: [id number] [employer]- All Rights Reserved Reading location - IP/workstation name: [email or web address]
[2017-10-31 22:45] LABS: PARTIAL THROMBOPLASTIN TIME 31.6 SEC (23.5-35.8)
[2017-10-31 22:52] LABS: ALANINE AMINOTRANSFERASE 22 U/L (9-52); ALBUMIN 4.5 g/dL (3.5-5.0); ALKALINE PHOSPHATASE 64 U/L (38-126); ANION GAP 13 (5-19); ASPARTATE AMINO TRANSFERASE 13 U/L (14-36); BILIRUBIN,DIRECT 0.3 mg/dL (0.0-0.4); BILIRUBIN,TOTAL 0.4 mg/dL (0.2-1.3); BLOOD UREA NITROGEN 7 mg/dL (7-20); CARBON DIOXIDE 21 mmol/L (22-30); CHLORIDE 108 mmol/L (98-107); CREATINE KINASE 39 U/L (30-135); GLUCOSE 91 mg/dL (75-110); SODIUM 142.1 mmol/L (137-145); TOTAL PROTEIN 7.3 g/dL (6.3-8.2)
[2017-10-31] MEDS ORDERED: KETOROLAC TROMETHAMINE INJ/PF 30 MG/1 ML SDV IV ONE (23:24)
[2017-10-31] MEDS ORDERED: MORPHINE SULFATE 10 MG/ML INJ IV ONE (23:25)
[2017-11-01 01:39] VITALS: BP 142/70
--- NOTE | 2017-11-01 08:20 | EKG REPORT ---
SEVERITY:- NORMAL ECG - SINUS RHYTHM : Confirmed by: J Carlos Choudhary 01-Nov-2017 05:19:01
== END 2017-11-01 01:40 | disposition home or self-care (01) ==
LOC: ER 22:18
DX: R51 Headache (principal); R29.810 Facial weakness; I10 Essential (primary) hypertension; R20.0 Anesthesia of skin; R53.1 Weakness; Z86.73 Personal history of transient ischemic attack (TIA), and cerebral infarction without residual deficits; Z82.3 Family history of stroke; Z88.1 Allergy status to other antibiotic agents; Z91.040 Latex allergy status
CPT/HCPCS: 93005; 99285; 96361; 96374; 96375; 36415; 82553; 82550; 85025; 85610; 85730; 80053; 71045; 70450; 93010; J1200; J2765; J2270; J7030